=== PATIENT | female | born 1980 | race Caucasian/White ===

== ENCOUNTER → 2016-04-30 | Outpatient (CLI) | payer OTHER ==
[~2016-04-30] MED LIST: CLON0.5T PO; FLOM5CAP PO; LAMO10TA PO; MELA0.02 PO; MULT1TAB10 PO; PERCOCET PO; QUDE1CAP PO; VIIB20TA PO
[2016-04-30 17:19] LABS: INR 1.05; MEAN CORPUSCULAR HEMOGLOBIN 27.5 pg (27.0-33.0); MEAN CORPUSCULAR HGB CONC 33.7 g/dl (32.0-36.5); MEAN CORPUSCULAR VOLUME 81.7 fl (80.0-96.0); RED CELL DISTRIBUTION WIDTH 13.9 % (11.5-14.5); WHITE BLOOD COUNT 6.7 K/mm3 (4.0-10.0)
[2016-04-30 18:19] LABS: CONTROL LINE HCG INT CTR LINE PRESENT
[2016-04-30 18:33] LABS: ANION GAP 9 MEQ/L (8-16); BLOOD UREA NITROGEN 13 MG/DL (7-18); CALCIUM LEVEL 9.3 MG/DL (8.5-10.1); CARBON DIOXIDE LEVEL 22 MEQ/L (21-32); CHLORIDE LEVEL 114 MEQ/L (98-107); CREATININE FOR GFR 0.98 MG/DL (0.55-1.02); GLOMERULAR FILTRATION RATE > 60.0 (>60); GLUCOSE, FASTING 101 MG/DL (70-105); POTASSIUM SERUM 4.1 MEQ/L (3.5-5.1); SODIUM LEVEL 145 MEQ/L (136-145)
== END ==
LOC: M SMT 13:34
PROVIDERS: ATTEND Nurse Practitioner Women's Health
DX: Z01.818 Encounter for other preprocedural examination (principal); N20.0 Calculus of kidney; N39.0 Urinary tract infection, site not specified
CPT/HCPCS: 36415; 80048; 81001; 84703; 85027; 85610; 85730; 87086; G0463

== ENCOUNTER → 2016-05-14 | Day surgery (SDC) | payer OTHER ==
[~2016-05-14] VITALS: Ht 157.5 cm; Wt 78.5 kg
[~2016-05-14] MED LIST changes: +MIDAZOLAM INJ 2 MG/2 ML VIAL (J2250) As Ordered ONE; +PERCOCET 5MG/325MG TAB As Ordered ONE; +PERCOCET 5MG/325MG TAB PO PRN; +PROPOFOL 200 MG/20 ML VIAL As Ordered ONE
--- NOTE | 2016-05-14 07:03 | REP ---
Clinical: Nephrolithiasis. Correlation: CT dated 04/10/2016. Findings: Single supine view of the abdomen and pelvis demonstrates a nonspecific bowel gas pattern which limits evaluation of the underlying urinary tract system. A small nonobstructing calculus in the lower pole left kidney is suggested and corresponds to finding on recent CT. No further urinary tract calcifications are identified by radiographic evaluation. No organomegaly. Skeletal structures are intact. Impression: Limited evaluation of the urinary tract system with suspected stable small nonobstructing left lower pole renal calculus. Signed by Casa Barksdale MD 05/14/2016 06:54 A
[2016-05-14 09:06] VITALS: BP 109/69
--- NOTE | 2016-05-14 10:44 | RO ---
DATE OF PROCEDURE: 05/14/2016 PREOPERATIVE DIAGNOSIS: Left kidney stone. POSTOPERATIVE DIAGNOSIS: Left kidney stone. SURGERY PERFORMED: Left extracorporeal shockwave lithotripsy. SURGEON: Dr. Jimi Garcia HORSE TRAINER: None. ANESTHESIA: Monitored anesthesia care (MAC). COMPLICATIONS: None. ESTIMATED BLOOD LOSS: N/A. FINDINGS: 7 mm left lower pole kidney stone. HISTORY OF PRESENT ILLNESS: This is a 35-year-old female patient with a 7 mm stone in the left lower pole of the kidney. The patient has consented for a left extracorporeal shockwave lithotripsy. PROCEDURE DESCRIPTION: In a patient under MAC anesthesia in supine position after prepping and draping the area of concern, which actively we localized the left kidney stone in the lower pole with ultrasound and x-ray, which was fairly easy. We then gave a total of 2500 shockwave lithotripsies at a power of 1-20. The first 100 shockwave lithotripsies were done at a power of 1-5. The following 100 shockwave lithotripsies were done at a power of 5-10. The final 2300 shockwave lithotripsies were done at a power of 10-20. The patient tolerated well the procedure. There were no complications. She will go home today with Flomax and Percocet for pain. She will take 3 liters of water and fluid. She will strain the urine. No heavy weight lifting above 20 pounds. She will followup at [facility] in about 3 weeks.
== END ==
LOC: M SDC 06:08
PROVIDERS: ATTEND Urology
DX: N20.0 Calculus of kidney (principal); F41.9 Anxiety disorder, unspecified; F31.9 Bipolar disorder, unspecified; K58.9 Irritable bowel syndrome, unspecified; Z87.442 Personal history of urinary calculi; Z79.899 Other long term (current) drug therapy; F17.210 Nicotine dependence, cigarettes, uncomplicated
CPT/HCPCS: 50590; 74000; J0690; J2250

== ENCOUNTER → 2017-11-18 | Outpatient (CLI) | payer OTHER | LOC: M RAD 14:56 | DX: R10.32 Left lower quadrant pain (principal); R30.0 Dysuria; R35.0 Frequency of micturition; R16.1 Splenomegaly, not elsewhere classified; N83.202 Unspecified ovarian cyst, left side | CPT/HCPCS: 74176 ==

== ENCOUNTER → 2018-02-07 | Outpatient (REF) | payer OTHER | LOC: M SFHCLERA 14:57 | DX: J02.9 Acute pharyngitis, unspecified (principal) ==

== ENCOUNTER → 2018-11-28 | Outpatient (REF) | payer OTHER ==
[~2018-11-28] MED LIST changes: -CLON0.5T PO; +CLON0.5T8 PO; +FLOM0.4C39 PO; -FLOM5CAP PO; +LAMO100T80 PO; -LAMO10TA PO; -MELA0.02 PO; +MELA3TAB49 PO; -MIDAZOLAM INJ 2 MG/2 ML VIAL (J2250) As Ordered ONE; -PERCOCET 5MG/325MG TAB As Ordered ONE; -PERCOCET 5MG/325MG TAB PO PRN; -PROPOFOL 200 MG/20 ML VIAL As Ordered ONE
== END ==
LOC: M SFHCLERA 11:16
PROVIDERS: ATTEND Nurse Practitioner Family
DX: R30.0 Dysuria (principal); Z53.9 Procedure and treatment not carried out, unspecified reason